=== PATIENT | male | born 1955 | race Caucasian/White ===

== ENCOUNTER → 2019-12-19 11:42 | Outpatient (CLI) | payer OTHER, SELFPAY ==
[2019-12-20 22:43] LABS: COVID19 Sendout Not Detected (Not Detect)
== END ==
PROVIDERS: Visit Provider Physician Assistant
DX: Z11.59 Encounter for screening for other viral diseases (principal)
CPT/HCPCS: 87635

== ENCOUNTER → 2021-08-03 11:47 | Outpatient (CLI) | payer OTHER, SELFPAY ==
--- NOTE | 2021-08-03 11:53 | DI.MRI.S_ITS ---
PROCEDURE: MR KNEE LT WO CON INDICATIONS: pain on left knee TECHNIQUE: Noncontrast sagittal PD fast spin echo and T2 fast spin echo with fat saturation, sagittal 3-D FLASH with fat saturation; coronal T1 spin echo and PD fast spin echo with fat saturation, and axial PD fast spin echo with fat saturation through the knee. COMPARISON: None. FINDINGS: Image quality: Excellent. Menisci: Complex tear involving body and posterior horn of medial meniscus is seen extending to both superior and inferior articulating surfaces. There is no focal lateral meniscal tear. The meniscal root ligaments appear intact. Cruciate ligaments: Attenuated appearance of anterior cruciate ligament suggestive of chronic moderate grade intrasubstance partial-thickness tear. No gross full-thickness ACL rupture. PCL is intact. Medial structures: There is low-grade MCL sprain/partial-thickness tear. The posterior oblique ligament, semimembranosus tendon insertions, oblique popliteal ligament, and meniscocapsular junction appear intact. Visualized portions of the pes anserinus tendons appear normal. No abnormal bursal fluid. Lateral structures: The lateral collateral ligament, long and short heads of the biceps femoris tendon appear intact. The popliteus tendon appears normal; the popliteofibular ligament appears intact. The posterosuperior and anteroinferior popliteomeniscal fascicles appear intact. The arcuate and fabellofibular ligaments appear intact, on either side of the lateral inferior geniculate artery. Iliotibial band appears normal. Anterior structures: The quadriceps and patellar tendons appear intact. Patellar alignment is normal. No femoral trochlear dysplasia or ventral trochlear prominence. No edema in the infrapatellar fat pad. Bones and cartilage: No bone marrow contusions or fractures. Moderate tricompartmental osteoarthritis and chondromalacia is seen more prominent in patellofemoral compartment. Joint space: There is moderate joint fluid, no gross loose bodies. No Daley's cyst. Normal appearing synovial plicae are incidentally noted. IMPRESSION: 1. Complex tear involving body and posterior horn of medial meniscus extending to both superior and inferior articulating surfaces. No definite focal lateral meniscal tear. 2. Attenuated appearance of ACL suggestive of chronic moderate to high-grade partial-thickness tear. No definite full-thickness ACL rupture. PCL is intact. 3. Low-grade MCL sprain/partial-thickness tear. 4. Moderate tricompartmental osteoarthritis and chondromalacia most prominent in patellofemoral compartment. Moderate joint effusion, no gross loose bodies. No fracture or dislocation. Dictated by: Surendra Rivas M.D. on 08/03/2021 at 14:27 Approved by: Surendra Rivas M.D. on 08/03/2021 at 14:34
== END ==
PROVIDERS: PCP Family Medicine; Referring Provider Family Medicine; Visit Provider Family Medicine
DX: S83.232A Complex tear of medial meniscus, current injury, left knee, initial encounter (principal); S83.412A Sprain of medial collateral ligament of left knee, initial encounter; M19.012 Primary osteoarthritis, left shoulder; M22.42 Chondromalacia patellae, left knee; M25.462 Effusion, left knee; M25.562 Pain in left knee
CPT/HCPCS: 73721

== ENCOUNTER → 2023-06-03 08:22 | Outpatient (CLI) | payer MEDICARE, OTHER, SELFPAY ==
[2023-06-03 09:13] LABS: Add Manual Diff / Slide Review NO; Basophils Absolute Auto 100 /uL (0-100); Basophils Percent Auto 1.2 % (0-2); Eosinophils Absolute Auto 500 /uL (0-450); Hemoglobin 15.6 g/dL (13.5-17.5); Lymphocytes Absolute Auto 2400 /uL (1100-4500); Lymphocytes Percent Auto 36.4 % (25-40); Mean Corpuscular Hemoglobin 32.2 PG (26-34); Mean Corpuscular Volume 94.7 fL (80-100); Monocytes Absolute Auto 500 /uL (0-900); Monocytes Percent Auto 7.5 % (3-14); Neutrophils Absolute Auto 3200 /uL (1500-7000); Neutrophils Percent Auto 47.9 % (50-75); Platelet Count 180 X10^3/uL (150-400); Red Blood Cell Count 4.86 X10^6/uL (4.5-5.9); Red Cell Distribution Width 14.2 % (11.6-14.8); White Blood Cell Count 6.7 X10^3/uL (4.5-11.0)
[2023-06-03 09:43] LABS: Alanine Aminotransferase 29 IU/L (<50); Albumin 3.9 g/dL (3.5-5.0); Albumin Globulin Ratio 1.4 (1.0-2.8); Alkaline Phosphatase 81 U/L (38-126); Aspartate Aminotransferase 28 IU/L (17-59); Bilirubin Total 0.7 mg/dL (0.2-1.3); Blood Urea Nitrogen 18 mg/dL (9-20); Calcium 9.5 mg/dL (8.4-10.2); Carbon Dioxide 27 mmol/L (22-32); Chloride 105 mmol/L (98-107); Cholesterol 307 mg/dL (140-199); Estimated Glomerular Filt Rate > 60 mL/min (>60); Globulin 2.8 g/dL (1.7-4.1); Glucose 105 mg/dL (80-110); HDL Cholesterol 52 mg/dL (40-60); HEMOLYSIS < 15 (0-50); LDL Cholesterol Calculated 220 mg/dL (<100); Potassium 4.5 mmol/L (3.4-5.1); Sodium 137 mmol/L (137-145); Total Protein 6.7 g/dL (6.3-8.2); Triglycerides 177 mg/dL (35-150)
[2023-06-03 10:04] LABS: Prostate Specific Antigen 2.09 ng/mL (0.10-4.00)
== END ==
PROVIDERS: PCP Family Medicine; Referring Provider Family Medicine; Visit Provider Family Medicine
DX: Z00.00 Encounter for general adult medical examination without abnormal findings (principal); Z83.3 Family history of diabetes mellitus; M25.562 Pain in left knee; Z12.5 Encounter for screening for malignant neoplasm of prostate
CPT/HCPCS: 80053; 80061; 84153; 85025; G0103

== ENCOUNTER 2023-06-28 09:22 | Day surgery (SDC) | payer MEDICARE, OTHER, SELFPAY ==
[2023-06-28 09:55] VITALS: BP 125/86; PULSE 52; RESP 16; TEMP 36.8; O2SAT 99; BMI 28.3
[2023-06-28] MEDS: LACTATED RINGERS 1,000 ML 100 ML IV (10:14)
--- NOTE | 2023-06-28 10:19 | PM.HP.1 ---
History of Present Illness History of Present Illness Date Patient Seen: 06/28/23 Time Patient Seen: 10:19 Chief complaint: KYC Narrative: Colon cancer screening, no family history, no current symptoms of concern. Last colonoscopy 10 years ago [facility] Medical History Preventative health care Family history of type 2 diabetes mellitus Family history of esophageal cancer History of fracture of clavicle Left knee pain History of carpal tunnel syndrome Social History household members: spouse Smoking Status: Former smoker alcohol intake: current Meds Home Medications and Allergies Home Medications Medication Instructions Recorded Confirmed Type aripiprazole 2 mg tablet (Abilify) 0.5 mg PO DAILY 06/28/23 06/28/23 History Allergies Allergy/AdvReac Type Severity Reaction Status Date / Time No Known Drug Allergies Allergy Verified 06/28/23 09:52 Review of Systems Review of Systems ROS: Yes All systems reviewed with the patient and are negative except as otherwise documented Exam Vital Signs (past 8 hours): - 06/28/23 09:55 Temperature 98.2 F Pulse Rate 52 L Respiratory Rate 16 Blood Pressure 125/86 Pulse Oximetry 99 Oxygen Delivery Method Room Air Oxygen Delivery Method Room Air Const General: cooperative, healthy appearing and comfortable Nutritional Appearance: average body habitus HENMT Head: normocephalic and atraumatic Eyes General: appearance normal, both eyes and all related structures Sclera: sclerae normal Neck Neck: trachea midline and No JVD Resp Effort & Inspection: normal respiratory effort and able to speak in complete sentences Cardio Rate: regular rate Rhythm: regular rhythm GI Inspection: normal to inspection Palpation: soft and No tender Skin General: elasticity normal and turgor normal Hair: normal Neuro General: patient alert, patient awake and patient oriented x3 Cognition: normal cognition Psych Mental Status: mental status grossly normal Judgment: judgment good Assessment & Plan Assessment & Plan narrative: Colon cancer screening using colonoscopy and anesthesia Time Spent With Patient Time with patient: less than 30 minutes
--- NOTE | 2023-06-28 10:42 | PM.OP.COLON ---
Operative Date/Time/Diagnoses Date of procedure: 06/28/23 Time of procedure: 10:42 Pre-op diagnosis: Colon cancer screening Post-op diagnosis: same Procedure & Clinicians Study performed: Colonoscopy with anesthesia Same procedure as scheduled: Yes Indications: Colon cancer screening Surgeon: Joelle Malik Procedure Notes Procedure in detail: Preop diagnosis: Colon cancer screening Postop diagnosis: Same Operative procedure: Colonoscopy with anesthesia Surgeon: Rosa Malik MD Findings: Normal colonoscopy. No polyps identified Procedure: Patient placed in lateral position. Rectal exam performed showing normal tone no masses. Colonoscope inserted into the rectum and advanced to ileocecal valve with minimal difficulty. Insufflation and extraction scope and the above findings including retroflex in the rectum. Impression: Normal colonoscopy, no polyps Plan: Repeat colonoscopy in 10 years unless otherwise indicated by change in clinical condition Specimen(s): none sent Complications: none Post-procedure Recommendations: Colonoscopy in 10 years Follow up: as needed Disposition: PACU
[2023-06-28 10:46] VITALS: BP 108/75; PULSE 58; RESP 16; TEMP 36.4; O2SAT 91
[2023-06-28 10:51] VITALS: BP 120/77; PULSE 55; RESP 14; O2SAT 91
[2023-06-28 10:57] VITALS: BP 101/71; PULSE 53; RESP 12; O2SAT 100
[2023-06-28 11:06] VITALS: BP 108/68; PULSE 53; RESP 18; O2SAT 98
[2023-06-28 11:11] VITALS: BP 106/74; PULSE 51; RESP 16; TEMP 36.5; O2SAT 99
--- NOTE | 2023-06-28 11:48 | SUR.PHASEII ---
IV removed per Sandy Green, PCT
== END 2023-06-28 11:45 | disposition home or self-care (01) ==
PROVIDERS: PCP Family Medicine; Referring Provider Surgery; Visit Provider Surgery
PROC: 0DJD8ZZ Inspection of Lower Intestinal Tract, Via Natural or Artificial Opening Endoscopic (ICD-10-PCS; CPT 45378; principal; 2023-06-28 10:15)
DX: Z12.11 Encounter for screening for malignant neoplasm of colon (principal)
CPT/HCPCS: G0121; J2704